=== PATIENT | female | born 1980 | race Caucasian/White ===

== ENCOUNTER 2018-03-16 17:29 | Inpatient (IN) | payer MEDICAID ==
[2018-03-16] MEDS: ONDANSETRON 4 MG INJ IV (18:05)
[2018-03-16 18:21] LABS: ADD MAN DIFF? NO
[2018-03-16 18:22] LABS: BASOPHILS % 0.3 % (0.0-2.0); EOSINOPHILS # 0.1 10^3/ul (0.0-0.5); HEMATOCRIT 38.6 % (37.0-47.0); HEMOGLOBIN 12.8 g/dl (12.0-16.0); LYMPHOCYTES # 2.2 10^3/ul (0.8-2.9); LYMPHOCYTES % 32.2 % (15.0-51.0); MEAN CORPUSCULAR HEMOGLOBIN 30.8 pg (29.0-33.0); MEAN CORPUSCULAR HGB CONC 33.2 g/dl (32.0-37.0); MEAN PLATELET VOLUME 11.9 fl (7.4-10.4); MONOCYTE # 0.4 10^3/ul (0.3-0.9); MONOCYTES % 6.2 % (0.0-11.0); NEUTROPHIL # 4.2 10^3/ul (1.6-7.5); NEUTROPHILS % 60.2 % (39.0-77.0); PLATELET COUNT 207 10^3/UL (140-415); RED BLOOD COUNT 4.15 10^6/ul (4.20-5.40); RED CELL DISTRIBUTION WIDTH 13.2 % (11.5-14.5)
[2018-03-16 18:25] LABS: ADD UMIC NO; UR ASCORBIC ACID NEGATIVE (NEGATIVE); UR BILIRUBIN (Dip) NEGATIVE (NEGATIVE); UR BLOOD (Dip) NEGATIVE (NEGATIVE); UR CLARITY CLEAR (CLEAR); UR COLOR STRAW (YELLOW); UR GLUCOSE (Dip) NEGATIVE (NEGATIVE); UR KETONES (Dip) NEGATIVE (NEGATIVE); UR LEUKOCYTE ESTERASE (Dip) NEGATIVE Leu/ul (NEGATIVE); UR NITRITE (Dip) NEGATIVE (NEGATIVE); UR SPECIFIC GRAVITY (Dip) 1.004 (1.003-1.030); UR TOTAL PROTEIN (Dip) NEGATIVE (NEGATIVE); UR UROBILINOGEN (Dip) NEGATIVE (NEGATIVE)
[2018-03-16 18:41] LABS: ALANINE AMINOTRANSFERASE 21 IU/L (13-69); ALBUMIN 3.7 g/dl (3.3-4.9); ALBUMIN/GLOBULIN RATIO 1.19; ALKALINE PHOSPHATASE 81 IU/L (42-121); ANION GAP 12 (8-16); ASPARTATE AMINO TRANSFERASE 19 IU/L (15-46); BILIRUBIN,INDIRECT 0.2 mg/dl (0-1.1); BILIRUBIN,TOTAL 0.2 mg/dl (0.2-1.3); BLOOD UREA NITROGEN 12 mg/dl (7-20); CALCIUM 8.7 mg/dl (8.4-10.2); CARBON DIOXIDE 27 mmol/L (21-31); CHLORIDE 107 mmol/L (97-110); CREATININE 0.83 mg/dl (0.44-1.00); GLUCOSE 96 mg/dl (70-220); LIPASE 103 U/L (23-300); POTASSIUM 3.8 mmol/L (3.5-5.1); SODIUM 142 mmol/L (135-144); TOTAL PROTEIN 6.8 g/dl (6.1-8.1)
[2018-03-16] MEDS ORDERED: SOD CHLORIDE 0.9% 100 ML (19:31)
[2018-03-16] MEDS ORDERED: IOHEXOL 300MG/ML 150 ML BTL (19:31)
[2018-03-16] MEDS: PIPER-TAZO 3.375 GM IV (PMX) 100 ML IVPB (21:06)
[2018-03-16] MEDS ORDERED: SOD CHLORIDE 0.9% 1,000 ML IV (21:13)
[2018-03-16] MEDS: SOD CHLORIDE 0.45% 1,000 ML IV (21:14)
[2018-03-16] MEDS ORDERED: ONDANSETRON 4 MG INJ IV (21:30)
[2018-03-16] MEDS ORDERED: ACETAMINOPHEN 325 MG TAB PO (21:30)
[2018-03-17] MEDS: DEXTROSE 5%-0.45% NACL 1,000 ML IV ×4 (00:01→19:40)
[2018-03-17] MEDS: PIPER-TAZO 3.375 GM IV (PMX) 100 ML IVPB ×5 (02:41→23:14)
[2018-03-17 06:55] LABS: ADD MAN DIFF? NO
[2018-03-17] MEDS: ONDANSETRON 4 MG INJ IV ×3 (06:55→19:31)
[2018-03-17] MEDS: morphine 2 MG INJ IV ×3 (06:55→23:17)
[2018-03-17 06:57] LABS: BASOPHILS % 0.4 % (0.0-2.0); EOSINOPHILS # 0.1 10^3/ul (0.0-0.5); EOSINOPHILS % 1.9 % (0.0-7.0); HEMATOCRIT 36.6 % (37.0-47.0); HEMOGLOBIN 12.2 g/dl (12.0-16.0); LYMPHOCYTES # 1.8 10^3/ul (0.8-2.9); LYMPHOCYTES % 31.2 % (15.0-51.0); MEAN CORPUSCULAR HGB CONC 33.3 g/dl (32.0-37.0); MEAN CORPUSCULAR VOLUME 93.1 fl (82.0-101.0); MEAN PLATELET VOLUME 11.5 fl (7.4-10.4); MONOCYTE # 0.4 10^3/ul (0.3-0.9); MONOCYTES % 7.3 % (0.0-11.0); NEUTROPHIL # 3.3 10^3/ul (1.6-7.5); PLATELET COUNT 191 10^3/UL (140-415); RED BLOOD COUNT 3.93 10^6/ul (4.20-5.40); RED CELL DISTRIBUTION WIDTH 13.2 % (11.5-14.5)
[2018-03-17 06:57] LABS: WHITE BLOOD COUNT 5.7 10^3/ul (4.8-10.8)
[2018-03-17] MEDS ORDERED: CEFAZOLIN 1 GM INJ (07:00)
[2018-03-17] MEDS ORDERED: LIDOCAINE 2% (SDV) 5 ML INJ (07:00)
[2018-03-17] MEDS ORDERED: METOCLOPRAMIDE 10 MG INJ (07:00)
[2018-03-17] MEDS ORDERED: DEXAMETHASONE 4 MG/ML 1 ML INJ (07:00)
[2018-03-17 07:23] LABS: ALANINE AMINOTRANSFERASE 20 IU/L (13-69); ALBUMIN 3.3 g/dl (3.3-4.9); ALBUMIN/GLOBULIN RATIO 1.17; ALKALINE PHOSPHATASE 68 IU/L (42-121); ANION GAP 12 (8-16); ASPARTATE AMINO TRANSFERASE 17 IU/L (15-46); BILIRUBIN,INDIRECT 0.6 mg/dl (0-1.1); BILIRUBIN,TOTAL 0.6 mg/dl (0.2-1.3); BLOOD UREA NITROGEN 8 mg/dl (7-20); CALCIUM 8.2 mg/dl (8.4-10.2); CARBON DIOXIDE 25 mmol/L (21-31); CHLORIDE 110 mmol/L (97-110); CREATININE 0.68 mg/dl (0.44-1.00); GLUCOSE 110 mg/dl (70-220); POTASSIUM 3.5 mmol/L (3.5-5.1); SODIUM 143 mmol/L (135-144); TOTAL PROTEIN 6.1 g/dl (6.1-8.1)
[2018-03-17] MEDS ORDERED: ONDANSETRON 4 MG INJ (08:46)
[2018-03-17] MEDS ORDERED: MIDAZOLAM 1 MG/ML 2 ML INJ (08:46)
[2018-03-17] MEDS ORDERED: IPRATROPIUM (NEB) 0.5 MG/2.5 ML AMP HHN (09:30)
[2018-03-17] MEDS ORDERED: LABETALOL HCL 20MG INJ IV (09:30)
[2018-03-17] MEDS: FAMOTIDINE 20 MG INJ IV ×2 (09:30→21:24)
[2018-03-17] MEDS ORDERED: HYDROmorphONE 1 MG/5 ML IV SYRINGE IV (09:30)
[2018-03-17] MEDS ORDERED: KETOROLAC 30 MG INJ IV (09:30)
[2018-03-17] MEDS ORDERED: MEPERIDINE 25 MG INJ IV (09:30)
[2018-03-17] MEDS ORDERED: hydrALAzine 20 MG INJ IV (09:30)
[2018-03-17] MEDS ORDERED: DIPHENHYDRAMINE 50 MG INJ IV (09:30)
[2018-03-17] MEDS ORDERED: FENTAnyl 50 MCG/ML VIAL IV ×2 (09:30)
[2018-03-17] MEDS ORDERED: PROPOFOL 20 ML (09:54)
[2018-03-17] MEDS ORDERED: SUGAMMADEX SODIUM 200 MG/2 ML VIAL IV ×2 (10:00→10:01)
[2018-03-17] MEDS: BUPIVACAINE 0.25% (MPF) 30 ML INJ (10:04)
[2018-03-17] MEDS: LIDOCAINE 1%/EPI 30 ML INJ (10:05)
[2018-03-17] MEDS ORDERED: ROPIVACAINE 0.5 % 30 ML VIAL (10:08)
[2018-03-17] MEDS ORDERED: SUCCINYLCHOLINE CHLORIDE 100 MG/5 ML SYG IV (10:09)
[2018-03-17] MEDS ORDERED: ROCURONIUM 50 MG INJ (10:09)
[2018-03-17] MEDS ORDERED: HYDROCODONE/APAP (5/325) TAB PO (10:30)
[2018-03-17] MEDS: HYDROmorphONE 1 MG/5 ML IV SYRINGE IV ×2 (11:07→11:30)
[2018-03-17] MEDS ORDERED: FAMOTIDINE 20 MG TAB PO (21:00)
[2018-03-18] MEDS: PIPER-TAZO 3.375 GM IV (PMX) 100 ML IVPB ×2 (05:17→12:57)
[2018-03-18 06:34] LABS: WHITE BLOOD COUNT 6.9 10^3/ul (4.8-10.8)
[2018-03-18 06:34] LABS: ADD MAN DIFF? NO; BASOPHILS % 0.1 % (0.0-2.0); EOSINOPHILS % 0.1 % (0.0-7.0); HEMATOCRIT 35.6 % (37.0-47.0); HEMOGLOBIN 11.4 g/dl (12.0-16.0); LYMPHOCYTES # 1.7 10^3/ul (0.8-2.9); LYMPHOCYTES % 24.1 % (15.0-51.0); MEAN CORPUSCULAR HEMOGLOBIN 30.5 pg (29.0-33.0); MEAN CORPUSCULAR VOLUME 95.2 fl (82.0-101.0); MEAN PLATELET VOLUME 12.2 fl (7.4-10.4); MONOCYTE # 0.5 10^3/ul (0.3-0.9); MONOCYTES % 6.5 % (0.0-11.0); NEUTROPHIL # 4.7 10^3/ul (1.6-7.5); NEUTROPHILS % 68.9 % (39.0-77.0); PLATELET COUNT 183 10^3/UL (140-415); RED BLOOD COUNT 3.74 10^6/ul (4.20-5.40); RED CELL DISTRIBUTION WIDTH 13.2 % (11.5-14.5)
[2018-03-18 06:48] LABS: HEMOGLOBIN A1C 5.5 % (0-5.9)
[2018-03-18 06:59] LABS: ANION GAP 9 (8-16); BLOOD UREA NITROGEN 4 mg/dl (7-20); CALCIUM 8.4 mg/dl (8.4-10.2); CARBON DIOXIDE 27 mmol/L (21-31); CHLORIDE 106 mmol/L (97-110); CHOL/HDL RATIO 2.1 RATIO; CHOLESTEROL 121 mg/dl (100-200); CREATININE 0.67 mg/dl (0.44-1.00); GLUCOSE 121 mg/dl (70-220); HDL CHOLESTEROL 57 mg/dl (34-82); LDL CHOLESTEROL,CALCULATED 49 mg/dl; MAGNESIUM 2.1 mg/dl (1.7-2.5); SODIUM 138 mmol/L (135-144); TRIGLYCERIDES 74 mg/dl (0-149)
[2018-03-18] MEDS: FAMOTIDINE 20 MG INJ IV (09:30)
[2018-03-18] MEDS: HYDROCODONE/APAP (5/325) TAB PO (09:31)
== END 2018-03-18 18:50 | disposition home or self-care (01) | DRG 343 ==
LOC: FTE 17:29 → 2NE 21:42
PROC: 0DTJ4ZZ Resection of Appendix, Percutaneous Endoscopic Approach (ICD-10-PCS; principal; 2018-03-17 09:00)
DX: K35.80 Unspecified acute appendicitis (principal); E66.9 Obesity, unspecified; Z68.34 Body mass index [BMI] 34.0-34.9, adult
CPT/HCPCS: 36415; 74177; 80048; 80053; 80061; 81003; 81025; 83036; 83690; 83735; 85025; 88304; 96374; 96375; 99285-25

== ENCOUNTER 2018-09-24 15:09 | Emergency (ER) | payer SELFPAY, OTHER, MEDICAID ==
[2018-09-24] MEDS: ACETAMINOPHEN 500 MG TAB PO (17:17)
[2018-09-24] MEDS: METHYLPREDNISOLONE 125 MG INJ IM (17:18)
[2018-09-24] MEDS: PROMETHAZINE/DM (CUP) PO (17:22)
[2018-09-24] MEDS: ALBUTEROL 0.083% (NEB) 2.5 MG/3 ML AMP NEB (17:50)
[2018-09-24] MEDS: IPRATROPIUM (NEB) 0.5 MG/2.5 ML AMP NEB (17:50)
[2018-09-24] MEDS: BENZONATATE 100 MG CAP PO (18:15)
== END 2018-09-24 18:35 | disposition home or self-care (01) ==
LOC: FTE 15:09
DX: J20.9 Acute bronchitis, unspecified (principal); J45.901 Unspecified asthma with (acute) exacerbation
CPT/HCPCS: 71045; 81025; 94664; 96372; 99284-25